=== PATIENT | female | born 1980 | race Caucasian/White ===

== ENCOUNTER 2019-12-31 14:41 | Emergency (ER) | payer OTHER ==
[~2019-12-31] VITALS: Ht 167.6 cm; Wt 78.0 kg
[2019-12-31 14:46] VITALS: Ht 167.6 cm; Wt 78.0 kg
[2019-12-31 15:30] LABS: BASOPHIL % 0.4 % (0-2); PLATELET COUNT 274 x10^3mcL (130-400)
[2019-12-31 15:31] LABS: CARBON DIOXIDE 25.8 mmol/L (21-32); CHLORIDE SERUM 102 mmol/L (98-107); CREATININE SERUM 0.7 mg/dL (0.6-1.0); GFR1 > 60 mL/min; GLUCOSE SERUM 106 mg/dL (74-106); POTASSIUM SERUM 3.4 mmol/L (3.5-5.1); RED CELL DISTRIBUTION WIDTH 16.4 % (11.5-14.5); SODIUM SERUM 136 mmol/L (136-145)
[2019-12-31 15:36] LABS: ALBUMIN 3.6 g/dL (3.4-5.0); ALKALINE PHOSPHATASE 62 U/L (46-116); ALT/SGPT 19 U/L (14-59); AST/SGOT 10 U/L (15-37); BILIRUBIN TOTAL 0.53 mg/dL (0.20-1.00); LIPASE 102 IU/L (73-393); TOTAL PROTEIN, SERUM 7.7 g/dL (6.4-8.2)
[2019-12-31 17:01] VITALS: BP 128/82
== END 2019-12-31 16:50 | disposition home or self-care (01) ==
LOC: ED 14:41
PROVIDERS: Emergency Medicine
DX: K21.9 Gastro-esophageal reflux disease without esophagitis (principal); Z98.890 Other specified postprocedural states

== ENCOUNTER 2020-03-23 13:16 | Emergency (ER) | payer OTHER ==
[~2020-03-23] VITALS: Ht 167.6 cm; Wt 78.0 kg
[2020-03-23 13:56] VITALS: Ht 167.6 cm; Wt 78.0 kg
[2020-03-23 15:05] LABS: BASOPHIL % 0.4 % (0.2-1.3); PLATELET COUNT 298 x10^3mcL (179-408)
[2020-03-23 15:09] LABS: RED CELL DISTRIBUTION WIDTH 17.3 % (12.3-17.7)
[2020-03-23 15:58] LABS: CALCIUM 8.5 mg/dL (8.5-10.1); CARBON DIOXIDE 26.6 mmol/L (21-32); CHLORIDE SERUM 103 mmol/L (98-107); CREATININE SERUM 0.6 mg/dL (0.6-1.0); GFR1 > 60 mL/min; GLUCOSE SERUM 103 mg/dL (74-106); POTASSIUM SERUM 3.5 mmol/L (3.5-5.1); SODIUM SERUM 141 mmol/L (136-145)
[2020-03-23 16:02] LABS: ALBUMIN 3.8 g/dL (3.4-5.0); ALKALINE PHOSPHATASE 59 U/L (46-116); ALT/SGPT 15 U/L (14-59); AST/SGOT 13 U/L (15-37); BILIRUBIN TOTAL 0.4 mg/dL (0.20-1.00); TOTAL PROTEIN, SERUM 7.6 g/dL (6.4-8.2)
[2020-03-23 18:10] LABS: rbc morphology (normal/abnorm) NORMAL (NORMAL)
[2020-03-23 20:27] VITALS: BP 110/76
== END 2020-03-23 20:27 | disposition home or self-care (01) ==
LOC: ED 13:16
DX: R10.31 Right lower quadrant pain (principal); R11.0 Nausea; Z88.0 Allergy status to penicillin; Z98.890 Other specified postprocedural states
CPT/HCPCS: 36415; Q9967